=== PATIENT | female | born 1980 | race Caucasian/White ===

== ENCOUNTER 2024-04-16 23:08 | Emergency (ER) | payer SELFPAY ==
[~2024-04-16] VITALS: Ht 157.5 cm; Wt 57.0 kg
[2024-04-16 23:34] VITALS: BP 127/82; PULSE 72; RESP 16; TEMP 98.8; O2SAT 100
[2024-04-17 00:42] LABS: BASOPHILS % 0.5 % (0.0-2.0); EOSINOPHILS % 1.7 % (0.0-5.0); HEMATOCRIT. 37.5 % (36.0-48.0); HEMOGLOBIN. 12.5 g/dL (12.0-16.0); LYMPHOCYTES % 36.1 % (20.0-50.0); MEAN CORPUSCULAR HEMOGLOBIN 32.9 pg (28.0-32.0); MEAN CORPUSCULAR HGB CONC 33.4 g/dL (31.0-37.0); MEAN CORPUSCULAR VOLUME 98.6 fL (81.0-99.0); MEAN PLATELET VOLUME 7.8 fl (7.4-10.4); MONOCYTES % 9.9 % (2.0-8.0); NEUTROPHILS % 51.8 % (40.0-76.0); PLATELET 249 x1000/uL (130-400); RED CELL DISTRIBUTION WIDTH 13.8 % (11.6-14.6); WHITE BLOOD COUNT 6.4 x1000/uL (4.5-11.0)
[2024-04-17 00:51] LABS: CHLORIDE 105 mEq/L (98-107); POTASSIUM 3.2 mEq/L (3.5-5.1); SODIUM 138 mEq/L (136-145)
[2024-04-17 00:52] LABS: CARBON DIOXIDE 30 mEq/L (21-32)
[2024-04-17 00:57] LABS: GLUCOSE 91 mg/dL (70-105); UREA NITROGEN BLOOD 17 mg/dL (9-23)
[2024-04-17 00:58] LABS: TROPONIN I HIGH SENSITIVITY 11 ng/L (3.0-34)
[2024-04-17 01:04] LABS: CALCIUM 9.6 mg/dL (8.7-10.4)
== END 2024-04-17 05:19 | disposition left against medical advice (07) ==
LOC: ER 23:08
DX: R07.89 Other chest pain (principal); Z53.21 Procedure and treatment not carried out due to patient leaving prior to being seen by health care provider
CPT/HCPCS: 36415; 71045; 80048; 84484; 85025; 93005